=== PATIENT | female | born 1935 | race Caucasian/White ===

== ENCOUNTER → 2024-04-12 08:01 | Outpatient (REF) | payer MEDICARE, BC, SELFPAY ==
[2024-04-12 08:58] LABS: % Basophils 0.7 % (0-2); % Eosinophils 2.5 % (0-6); % Immature Granulocytes 0.2 % (0-0.5); % Lymphocytes 47.5 % (20.5-51.1); % Monocytes 7.1 % (1.7-9.3); Absolute Eosinophils 0.1 10^3/uL (0-0.7); Absolute Lymphocytes 2.6 10^3/uL (1.2-3.4); Absolute Monocytes 0.4 10^3/uL (0.1-0.6); Absolute Neutrophils 2.3 10^3/uL (1.4-6.5); Hematocrit 37.1 % (37.0-47.0); Hemoglobin 12.7 g/dL (12.0-16.0); Mean Corp Hgb Conc. 34.2 g/dL (33.0-37.0); Mean Corpuscular Hgb 30.3 pg (27.0-31.0); Mean Corpuscular Volume 88.5 fL (81.0-99.0); Nucleated Red Blood Cells % 0 %; Platelet Count 222 10^3/uL (130-400); Red Blood Cell Count 4.19 10^6/uL (4.20-5.40); Red Cell Dist. Width 13.5 % (11.5-14.5); White Blood Cell Count 5.5 10^3/uL (4.8-10.8)
[2024-04-12 09:25] LABS: ALT (SGPT) 38 U/L (0-35); AST (SGOT) 36 U/L (14-36); Albumin 4.7 g/dl (3.5-5.0); Alkaline Phosphatase 57 U/L (38-126); Blood Urea Nitrogen 18 mg/dl (7-17); Calcium 10.4 mg/dl (8.4-10.2); Carbon Dioxide 30 mmol/L (22-30); Chloride 102 mmol/L (98-107); Glucose 105 mg/dl (70-99); HDL Cholesterol 72 mg/dl; LDL Cholesterol, Calculated 114 mg/dl; Potassium 3.7 mmol/L (3.5-5.1); Sodium 143 mmol/L (135-145); Total Bilirubin 0.6 mg/dl (0.2-1.3); Total Cholesterol 207 mg/dl (50-199); Total Protein 7.4 g/dl (6.3-8.2); Triglyceride 109 mg/dl (10-149); Very Low Density Lipoprotein 21 mg/dl (0-30); eGFR > 60.00
[2024-04-12 09:53] LABS: TSH Reflex To Free T4 5.38 uIU/ml (0.47-4.68)
[2024-04-12 10:11] LABS: Vitamin D, 25-OH*** 51.3 ng/mL (30-80)
== END ==
LOC: REG 08:01
PROVIDERS: ATTENDING PHYSICIAN Nurse Practitioner Family; FAMILY PHYSICIAN Family Medicine
DX: Z00.00 Encounter for general adult medical examination without abnormal findings (principal); E55.9 Vitamin D deficiency, unspecified; I10 Essential (primary) hypertension
CPT/HCPCS: 36415; 80053; 80061; 82306; 84439; 84443; 85025

== ENCOUNTER → 2025-09-06 08:00 | Outpatient (REF) | payer MEDICARE, BC, SELFPAY ==
[2025-09-06 08:34] LABS: Hematocrit 38.0 % (37.0-47.0); Hemoglobin 12.7 g/dL (12.0-16.0); Mean Corp Hgb Conc. 33.4 g/dL (33.0-37.0); Mean Corpuscular Volume 87.8 fL (81.0-99.0); Nucleated Red Blood Cells % 0 %; Platelet Count 203 10^3/uL (130-400); Red Cell Dist. Width 12.6 % (11.5-14.5)
[2025-09-06 09:10] LABS: ALT (SGPT) 30 U/L (0-35); AST (SGOT) 28 U/L (14-36); Albumin 5.0 g/dl (3.5-5.0); Alkaline Phosphatase 57 U/L (38-126); Blood Urea Nitrogen 19 mg/dl (7-17); Calcium 9.8 mg/dl (8.4-10.2); Carbon Dioxide 29 mmol/L (22-30); Chloride 100 mmol/L (98-107); Glucose 99 mg/dl (70-99); HDL Cholesterol 72 mg/dl; LDL Cholesterol, Calculated 118 mg/dl; Potassium 3.5 mmol/L (3.5-5.1); Sodium 139 mmol/L (135-145); Total Protein 7.8 g/dl (6.3-8.2); Very Low Density Lipoprotein 19 mg/dl (0-30); eGFR > 60.00
[2025-09-06 09:14] LABS: Vitamin D, 25-OH*** 35.6 ng/mL (30-80)
== END ==
LOC: REG 08:00
PROVIDERS: ATTENDING PHYSICIAN Family Medicine
DX: E55.9 Vitamin D deficiency, unspecified (principal); E78.2 Mixed hyperlipidemia; I10 Essential (primary) hypertension
CPT/HCPCS: 36415; 80053; 80061; 82306; 85025